=== PATIENT | female | born 1980 | race Caucasian/White ===

== ENCOUNTER 2017-02-09 15:07 | Inpatient (IN) ==
[2017-02-09] MEDS ORDERED: HYDROmorphone 2 MG/1 ML VIAL IV STA (15:29)
[2017-02-09] MEDS ORDERED: ONDANSETRON 4 MG/2 ML VIAL IV STA (15:30)
[2017-02-09] MEDS ORDERED: ONDANSETRON 4 MG/2 ML VIAL ONE (15:48)
[2017-02-09] MEDS ORDERED: HYDROmorphone 2 MG/1 ML VIAL ONE ×2 (15:49)
[2017-02-09] MEDS ORDERED: PROPOFOL 200 MG/20 ML VIAL IV ONE (16:26)
[2017-02-09] MEDS ORDERED: PROPOFOL 200 MG/20 ML VIAL IV STA (16:28)
[2017-02-09 16:43] LABS: Basophils % 0.3 % (0.0-0.8); Eosinophils # 0.1 10*3/uL (0.0-0.87); Eosinophils % 0.8 % (0.00-10.9); Hematocrit 35.9 VOL% (35.7-47.0); Hemoglobin 12.1 GM/DL (12.0-16.0); Immature Granulocytes % 0.3 %; Immature Granulocytes Absolute 0.02 #; Lymphocytes # 3.5 10*3/uL (1.4-4.0); Lymphocytes % 44.2 % (21.3-54.2); Mean Corpuscular HGB Conc 33.7 GM/DL (32-36); Mean Corpuscular Hemoglobin 32 PG (27-34); Mean Corpuscular Volume 95.2 FL (87-102); Monocytes # 0.7 10*3/uL (0.11-0.8); Monocytes % 8.5 % (1.7-12.7); Neutrophils # 3.6 10*3/uL (1.4-7.4); Neutrophils % 45.9 % (38.7-73.9); Platelet Count 181 T/CUMM (130-400); Red Blood Count 3.77 MC/CUMM (3.8-5.5); Red Cell Distribution Width 13.2 % (9.3-17.3); White Blood Count 7.9 T/CUMM (4-12)
[2017-02-09 16:54] LABS: Calcium 9.2 MG/DL (8.5-10.1); Osmolality,Calculated 275.7 MOS/KG (273-304); Potassium 4.3 MMOL/L (3.5-5.1)
[2017-02-09] MEDS ORDERED: PROMETHAZINE 25 MG/1 ML VIAL IM PRN (16:55)
[2017-02-09] MEDS ORDERED: BISACODYL 5 MG TABLET PO PRN (16:55)
[2017-02-09] MEDS ORDERED: BISACODYL 10 MG SUPP RECTAL PRN (16:55)
[2017-02-09] MEDS ORDERED: TEMAZEPAM 15 MG CAPSULE PO PRN (16:55)
[2017-02-09] MEDS ORDERED: MAGNESIUM HYDROXIDE SUSP 30 ML UDCUP PO PRN (16:55)
[2017-02-09] MEDS ORDERED: LACTULOSE 20 GM/30 ML UDCUP PO PRN (16:55)
[2017-02-09] MEDS ORDERED: ALUMINUM/MAGNES/SIMETH MAX STR 30 ML UDCUP PO PRN (16:55)
[2017-02-09] MEDS: SODIUM CHLORIDE 0.9% 1,000 ML IV SCH ×2 (17:29→23:02)
[2017-02-09] MEDS: HYDROmorphone 2 MG/1 ML VIAL IV PRN ×2 (18:36→23:01)
[2017-02-09] MEDS: ALPRAZolam 0.5 MG TABLET PO PRN (19:19)
[2017-02-10] MEDS: HYDROmorphone 2 MG/1 ML VIAL IV PRN ×8 (02:06→18:40)
[2017-02-10] MEDS: ONDANSETRON 4 MG/2 ML VIAL IV PRN ×3 (07:16→22:46)
[2017-02-10] MEDS: ESTROGENS (CONJ) 0.625 MG TABLET PO SCH (08:17)
[2017-02-10] MEDS: METOPROLOL SUCCINATE XL 100 MG TABLET PO SCH (08:18)
[2017-02-10] MEDS ORDERED: ceFAZolin 2,000 MG in PREMIX 1 EACH IV ONE (09:00)
[2017-02-10] MEDS: LACTATED RINGERS 1,000 ML IV SCH ×2 (09:54→10:46)
[2017-02-10] MEDS ORDERED: PHENYLEPHRINE 1 MG/10 ML SYRINGE IV ONE (09:54)
[2017-02-10] MEDS ORDERED: PROPOFOL 200 MG/20 ML VIAL IV ONE (09:54)
[2017-02-10] MEDS ORDERED: ONDANSETRON 4 MG/2 ML VIAL ONE ×2 (09:54→11:30)
[2017-02-10] MEDS ORDERED: LIDOCAINE 1% 5 ML VIAL ONE (09:54)
[2017-02-10] MEDS ORDERED: MAGNESIUM HYDROXIDE SUSP 30 ML UDCUP PO PRN (11:02)
[2017-02-10] MEDS ORDERED: ROPIVACAINE 0.5% 30 ML VIAL ONE (11:11)
[2017-02-10] MEDS ORDERED: LACTATED RINGERS 1,000 ML IV ONE (11:16)
[2017-02-10] MEDS ORDERED: ACETAMINOPHEN 1,000 MG/100 ML VIAL IV ONE (11:16)
[2017-02-10] MEDS ORDERED: SEVOFLURANE 1 UNIT/15 MINUTE INH ONE (11:16)
[2017-02-10] MEDS ORDERED: fentaNYL 100 MCG/2 ML VIAL ONE (11:16)
[2017-02-10] MEDS ORDERED: MIDAZOLAM 2 MG/2 ML VIAL ONE (11:16)
[2017-02-10] MEDS ORDERED: ONDANSETRON 4 MG/2 ML VIAL IV PRN (11:19)
[2017-02-10] MEDS ORDERED: HYDROmorphone 2 MG/1 ML VIAL ONE (11:30)
[2017-02-10] MEDS: KETOROLAC 15 MG/1 ML VIAL IV SCH ×4 (12:09→22:48)
[2017-02-10] MEDS: SODIUM CHLORIDE 0.9% 1,000 ML IV SCH ×2 (12:09→21:15)
[2017-02-10] MEDS: ALPRAZolam 0.5 MG TABLET PO PRN (15:50)
[2017-02-11] MEDS: HYDROmorphone 2 MG/1 ML VIAL IV PRN ×2 (01:06→08:39)
[2017-02-11] MEDS: KETOROLAC 15 MG/1 ML VIAL IV SCH (06:01)
[2017-02-11] MEDS: ONDANSETRON 4 MG/2 ML VIAL IV PRN (07:38)
[2017-02-11] MEDS: METOPROLOL SUCCINATE XL 100 MG TABLET PO SCH (08:37)
[2017-02-11] MEDS: ESTROGENS (CONJ) 0.625 MG TABLET PO SCH (08:37)
[2017-02-11] MEDS: ALPRAZolam 0.5 MG TABLET PO PRN (08:37)
[2017-02-11] MEDS: SODIUM CHLORIDE 0.9% 1,000 ML IV SCH (09:00)
[2017-02-11 11:59] VITALS: BP 121/80
== END 2017-02-11 11:45 | disposition home or self-care (01) | DRG 494 ==
LOC: EDUNIT# → EDBD → N.ED 15:07 → N.EDINP 16:55 → N.3E 18:08
PROVIDERS: ADMIT Orthopaedic Surgery; ATTEND Orthopaedic Surgery